=== PATIENT | female | born 1995 | race Two or more races ===

== ENCOUNTER 2018-04-11 00:13 | Emergency (ER) | payer MEDICAID ==
[~2018-04-11] VITALS: Ht 160 cm; Wt 66.7 kg
[2018-04-11 03:32] VITALS: BP 126/74
== END 2018-04-11 03:32 | disposition home or self-care (01) ==
LOC: ED 00:13
DX: N39.0 Urinary tract infection, site not specified (principal); G51.0 Bell's palsy
CPT/HCPCS: J1200; J1885; J2765; J7030

== ENCOUNTER 2019-06-27 07:12 | Emergency (ER) | payer SELFPAY ==
[~2019-06-27] VITALS: Ht 157.5 cm; Wt 66.2 kg
[2019-06-27 07:15] VITALS: Ht 157.5 cm; Wt 66.2 kg
[2019-06-27 07:57] LABS: BASOPHIL % 0.1 % (0-2); PLATELET COUNT 302 x10^3mcL (130-400)
[2019-06-27 07:59] LABS: RED CELL DISTRIBUTION WIDTH 17.7 % (11.5-14.5)
[2019-06-27 08:05] LABS: CARBON DIOXIDE 23.9 mmol/L (21-32); CHLORIDE SERUM 102 mmol/L (98-107); CREATININE SERUM 0.8 mg/dL (0.6-1.0); GFR1 > 60 mL/min; GLUCOSE SERUM 93 mg/dL (74-106); POTASSIUM SERUM 3.9 mmol/L (3.5-5.1); SODIUM SERUM 136 mmol/L (136-145)
[2019-06-27 08:10] LABS: ALBUMIN 3.5 g/dL (3.4-5.0); ALKALINE PHOSPHATASE 62 U/L (46-116); ALT/SGPT 6 U/L (14-59); AST/SGOT 6 U/L (15-37); BILIRUBIN TOTAL 0.45 mg/dL (0.20-1.00); MAGNESIUM 1.5 mg/dL (1.8-2.4); TOTAL PROTEIN, SERUM 7.2 g/dL (6.4-8.2)
[2019-06-27 08:34] LABS: AMPHETAMINE QUAL UR NONE DETECTED (See below)
[2019-06-27 08:53] LABS: UA SPECIFIC GRAVITY 1.015 (1.005-1.035); microscopic required? YES; urine erythrocyte NEGATIVE (NEGATIVE)
[2019-06-27 10:45] VITALS: BP 99/51
== END 2019-06-27 10:45 | disposition home or self-care (01) ==
LOC: ED 07:12
PROVIDERS: Specialist
DX: M79.10 Myalgia, unspecified site (principal); R50.9 Fever, unspecified; F41.9 Anxiety disorder, unspecified
CPT/HCPCS: 87804; G0480; J0696; J1885; J2060; J7030; J7060

== ENCOUNTER 2019-09-03 21:50 | Emergency (ER) | payer MEDICAID ==
[~2019-09-03] VITALS: Ht 157.5 cm; Wt 67.1 kg
[2019-09-03 21:56] VITALS: Ht 157.5 cm; Wt 67.1 kg
[2019-09-03 23:44] LABS: PLATELET COUNT 321 x10^3mcL (130-400)
[2019-09-03 23:47] LABS: RED CELL DISTRIBUTION WIDTH 17.7 % (11.5-14.5)
[2019-09-03 23:56] LABS: CALCIUM 8.4 mg/dL (8.5-10.1); CARBON DIOXIDE 25.6 mmol/L (21-32); CHLORIDE SERUM 105 mmol/L (98-107); CREATININE SERUM 0.6 mg/dL (0.6-1.0); GFR1 > 60 mL/min; GLUCOSE SERUM 97 mg/dL (74-106); SODIUM SERUM 139 mmol/L (136-145)
[2019-09-04 00:06] LABS: ALBUMIN 3.6 g/dL (3.4-5.0); ALKALINE PHOSPHATASE 58 U/L (46-116); ALT/SGPT 21 U/L (14-59); AST/SGOT 12 U/L (15-37); BILIRUBIN TOTAL 0.3 mg/dL (0.20-1.00); TOTAL PROTEIN, SERUM 7.2 g/dL (6.4-8.2)
[2019-09-04 00:37] VITALS: BP 102/64
== END 2019-09-04 00:37 | disposition home or self-care (01) ==
LOC: ED 21:50
PROVIDERS: Emergency Medicine
DX: J40 Bronchitis, not specified as acute or chronic (principal); R42 Dizziness and giddiness; D64.9 Anemia, unspecified; G51.0 Bell's palsy
CPT/HCPCS: Q0092